=== PATIENT | male | born 1990 | race Caucasian/White ===

== ENCOUNTER 2019-12-16 20:07 | Emergency (ER) | payer MEDICAID ==
[~2019-12-16] VITALS: Ht 177.8 cm; Wt 97.5 kg
[2019-12-16 20:15] VITALS: BP_SYST 158
[2019-12-16 21:15] LABS: BASOPHILS % (AUTO) 0.5 % (0.0-2.0); EOSINOPHILS # (AUTO) 0.2 K/uL (0.0-0.4); EOSINOPHILS % (AUTO) 3.4 % (0.0-4.0); HEMATOCRIT 45.6 % (36-54); HEMOGLOBIN 15.7 g/dL (14.0-18.0); LYMPHOCYTES # (AUTO) 1.5 K/uL (1.0-5.5); LYMPHOCYTES % (AUTO) 20.4 % (20.5-51.5); MEAN CORPUSCULAR HEMOGLOBIN 30 pg (27-31); MEAN CORPUSCULAR HGB CONC 34 % (32-36); MEAN CORPUSCULAR VOLUME 88 fL (79.0-98.0); MONOCYTES # (AUTO) 0.7 K/uL (0.0-1.0); MONOCYTES % (AUTO) 9.5 % (1.7-9.3); NEUTROPHILS # (AUTO) 4.8 K/uL (1.8-7.7); NEUTROPHILS % (AUTO) 66.2 % (40.0-70.0); PLATELET COUNT (AUTO) 218 K/uL (130-430); RED BLOOD CELL COUNT(AUTO) 5.21 MIL/uL (4.2-6.2); RED CELL DISTRIBUTION WIDTH 12.4 % (9.0-15.0); WHITE BLOOD COUNT (AUTO) 7.2 K/uL (4.8-10.8)
[2019-12-16 21:28] LABS: BARBITURATE, URINE NEGATIVE (NEG <=200); BENZODIAZEPINE, URINE NEGATIVE (NEG <=150); CALCIUM 8.5 mg/dL (8.4-11.0); CANNABINOID, URINE NEGATIVE (NEG <=50); COCAINE, URINE NEGATIVE (NEG <=150); CREATININE 1.07 mg/dL (0.55-1.30); METHAMPHETAMINES SCREEN,URINE NEGATIVE (NEG <=500); OPIATE, URINE NEGATIVE (NEG <=100); PHENCYCLIDINE SCREEN,URINE NEGATIVE (NEG <=25); POTASSIUM 3.9 mmol/L (3.5-5.1); UR TRICYCLIC ANTIDEPRESSANTS NEGATIVE (NEG <=300); URINE AMPHETAMINE NEGATIVE (NEG <=500); URINE METHADONE NEGATIVE (NEG <=200); URINE OXYCODONE SCREEN NEGATIVE (NEG <=100); URINE PROPOXYPHENE SCREEN NEGATIVE (NEG <=300)
[2019-12-16 21:34] LABS: ALBUMIN 4.1 g/dL (3.4-4.8); TOTAL BILIRUBIN 0.4 mg/dL (0.0-1.0)
[2019-12-16 22:00] LABS: BILIRUBIN,URINE NEGATIVE (NEGATIVE); BLOOD, URINE NEGATIVE (NEGATIVE); CLARITY/URINE CLEAR (CLEAR); COLOR,URINE YELLOW (YELLOW); GLUCOSE,URINE NEGATIVE (NEGATIVE); KETONES,URINE NEGATIVE (NEGATIVE); LEUKOCYTE ESTERASE ,URINE NEGATIVE (NEGATIVE); NITRITE, URINE NEGATIVE (NEGATIVE); PROTEIN URINE NEGATIVE (NEGATIVE); UROBILINOGEN,URINE 0.2 (0.2-1.0)
[2019-12-16 23:21] VITALS: BP_SYST 153
== END 2019-12-16 23:21 | disposition home or self-care (01) ==
LOC: SED 20:07
DX: F41.9 Anxiety disorder, unspecified (principal); I10 Essential (primary) hypertension; R42 Dizziness and giddiness; R07.89 Other chest pain
CPT/HCPCS: 36415; 70450-TC; 71045; 80053; 80307; 81003; 83690-TC; 84484; 85025; 93005; 99285